=== PATIENT | male | born 1955 | race Caucasian/White ===

== ENCOUNTER 2020-04-15 10:03 | Inpatient (IN) | payer OTHER ==
[~2020-04-15] VITALS: Ht 182.9 cm; Wt 79.0 kg
--- NOTE | 2020-04-15 10:10 | NUR ---
Placed pt in ED bed and spoke with SHANEKA Adamson about pt symptoms/condition and asked him to eval pt. No neuro deficits noted at this time. SHANEKA Adamson signed up for pt.
[2020-04-15 10:53] LABS: BASOPHILS # (AUTO) 0.1 X10'3 (0-0.2); BASOPHILS % (AUTO) 0.9 % (0-1); EOSINOPHILS # (AUTO) 0.3 X10'3 (0-0.9); EOSINOPHILS % (AUTO) 3.2 % (0-6); HEMATOCRIT 42.6 % (42.0-52.0); HEMOGLOBIN 13.8 g/dl (14.0-17.9); LYMPHOCYTES # (AUTO) 2.2 X10'3 (1.1-4.8); LYMPHOCYTES % (AUTO) 21.7 % (21-51); MEAN CORPUSCULAR HEMOGLOBIN 26.4 PG (27.0-31.0); MEAN CORPUSCULAR HGB CONC 32.5 g/dL (33.0-36.5); MEAN CORPUSCULAR VOLUME 81.1 FL (78-98); MONOCYTES # (AUTO) 0.9 X10'3 (0-0.9); MONOCYTES % (AUTO) 8.6 % (2-12); NEUTROPHILS # (AUTO) 6.7 X10'3 (1.8-7.7); NEUTROPHILS % (AUTO) 65.6 % (42-75); PLATELET COUNT 193 X10'3 (140-440); RED BLOOD COUNT 5.25 X10'6 (4.70-6.10); RED CELL DISTRIBUTION WIDTH 13.5 % (11.5-14.5); WHITE BLOOD COUNT 10.2 X10'3 (4.5-11.0)
--- NOTE | 2020-04-15 10:58 | NUR ---
Arrived for Level 1 stroke alert.
--- NOTE | 2020-04-15 11:05 | NUR ---
stroke nurse present, CT done 1030, tele-Neuro in room
--- NOTE | 2020-04-15 11:05 | NUR ---
Have set up Telemedicine for neuro evaluation, patient seems to have resolved except for some light headedness.
[2020-04-15 11:08] LABS: PARTIAL THROMBOPLASTIN TIME 37 SECONDS (22-32)
[2020-04-15 11:10] LABS: ALANINE AMINOTRANSFERASE 29 U/L (12-78); ALBUMIN 3.8 G/DL (3.4-5.0); ALKALINE PHOSPHATASE 108 IU/L (46-116); ANION GAP 7 (8-16); ASPARTATE AMINO TRANSFERASE 14 U/L (10-37); BILIRUBIN,TOTAL 0.2 MG/DL (0.1-1.0); BLOOD UREA NITROGEN 11 MG/DL (7-18); BUN/CREATININE RATIO 10.5 (5.4-32.0); CALCIUM 8.7 MG/DL (8.5-10.1); CHLORIDE 101 MMOL/L (99-107); CREATININE 1.05 MG/DL (0.60-1.10); GLUCOSE 259 MG/DL (70-104); POTASSIUM 4.1 MMOL/L (3.5-5.1); SODIUM 135 MMOL/L (135-145); TOTAL CARBON DIOXIDE 26.8 MMOL/L (24-32); TOTAL PROTEIN 7.7 G/DL (6.4-8.2); eGFR 72 ML/MIN
--- NOTE | 2020-04-15 11:25 | NUR ---
I did get patient out of bed and his sbp did drop some from the 140's to 120's with standing. He was able to walk and was not unsteady but did again say he had minimal light headedness.
[2020-04-15] MEDS ORDERED: aspirin 325mg tablet PO ONE (11:35)
[2020-04-15] MEDS ORDERED: normal saline 1000ml 1,000 ML IV ONE (11:40)
[2020-04-15] MEDS ORDERED: LISI-604 PO (11:59)
[2020-04-15] MEDS ORDERED: SIMV10TA2 PO (11:59)
[2020-04-15] MEDS ORDERED: METF500T PO (11:59)
[2020-04-15 12:07] LABS: CLARITY,URINE CLEAR (Clear); COLOR,URINE YELLOW (Yellow); GLUCOSE, URINE 500 mg/dl (Neg); KETONES,URINE TRACE mg/dl (Neg); LEUKOCYTE ESTERASE ,URINE NEGATIVE (Neg); NITRITES, URINE NEGATIVE (Neg); OCCULT BLOOD,URINE NEGATIVE (Neg); PROTEIN,URINE NEGATIVE (Neg); UROBILINOGEN,URINE 0.2 E.U/dL (0.2-1.0)
[2020-04-15 12:09] LABS: UA COLLECTION TYPE CLN CATCH MIDSTREAM
[2020-04-15] MEDS ORDERED: normal saline 1000ml 1,000 ML IV SCH ×2 (12:34→18:40)
[2020-04-15] MEDS ORDERED: glucagon, human recombinant 1mg kit SUBCUT PRN (12:35)
[2020-04-15] MEDS ORDERED: magnesium Cl slow-release 64mg tablet PO PRN (12:35)
[2020-04-15] MEDS ORDERED: MESSAGE TO PHARMACY PO ONE (12:35)
[2020-04-15] MEDS ORDERED: diphenhydrAMINE 25mg capsule PO PRN (12:35)
[2020-04-15] MEDS ORDERED: insulin Lispro (HumaLOG) vial - multi-dose SQ SCH (12:35)
[2020-04-15] MEDS ORDERED: mag hydrox/Alum hydrox/simeth 30ml oral suspension PO PRN (12:35)
[2020-04-15] MEDS ORDERED: bisacodyl 10mg suppository rectal RC PRN (12:35)
[2020-04-15] MEDS ORDERED: dextrose 50%-water 50ml dispensing syringe IV PRN ×2 (12:35)
[2020-04-15] MEDS ORDERED: potassium Cl 20 mEq SR tablet PO PRN ×2 (12:35)
[2020-04-15] MEDS ORDERED: HYDROcodone/acetaminophen 5mg/325mg tablet PO PRN (12:35)
[2020-04-15] MEDS ORDERED: HYDROcodone/acetaminophen 10/325mg tab PO PRN (12:35)
[2020-04-15] MEDS ORDERED: magnesium hydroxide 30ml (MOM) UD suspension PO PRN (12:35)
[2020-04-15] MEDS ORDERED: potassium CL 10mEq/100ml bag 100 ML IV PRN ×2 (12:35)
[2020-04-15] MEDS ORDERED: magnesium 2GM in 50ml NS 50 ML IV PRN (12:35)
[2020-04-15] MEDS ORDERED: dextrose ORAL solution 15 GM/59 ML bottle PO PRN ×2 (12:35)
[2020-04-15] MEDS ORDERED: magnesium 4gm in 100ml NS 100 ML IV PRN (12:35)
[2020-04-15] MEDS ORDERED: morphine 2 MG/ML inj. syringe IV PRN ×2 (12:35)
[2020-04-15] MEDS ORDERED: acetaminophen 650mg rectal suppository RC PRN (12:35)
[2020-04-15] MEDS ORDERED: ondansetron/PF 4mg/2ml inj IV PRN (12:35)
[2020-04-15] MEDS ORDERED: acetaminophen 325mg tablet PO PRN ×2 (12:35)
[2020-04-15] MEDS ORDERED: iohexol 350MG/ML 100ml bottle IV ONE (12:46)
[2020-04-15] MEDS: MESSAGE TO NURSING PO SCH (13:00)
[2020-04-15 13:20] LABS: CHOL/HDL RATIO 4.2 (0.00-4.99); CHOLESTEROL 150 MG/DL (0-200); HDL CHOLESTEROL 36 MG/DL (35-60); LDL CHOLESTEROL 92 MG/DL (50-100); TRIGLYCERIDES 109 MG/DL (20-135)
[2020-04-15 13:25] LABS: HEMOGLOBIN A1C 8.5 % (4.5-6.2)
--- NOTE | 2020-04-15 15:00 | NUR ---
RECEIVED REPORT FROM [facility]ULTANTMIRIAM HERNANDEZ RECEIVED PT INTO ROOM 4022D ORIENTED TO SURROUNDINGS,,ASSESSMENT COMPLETE,NO NEURO DEFICITS.PT C/O SLIGHT LIGHT HEADEDNESS WITH AMB,WHICH PASSES AFTER STANDING FOR A MOMENT,AMB IN ROOM,PT DOWN TO MRI VIA W/C
[2020-04-15 15:30] VITALS: BP 133/75
[2020-04-15 15:47] VITALS: BP 133/74
[2020-04-15] MEDS ORDERED: nicotine 21mg patch - 24 hr TD ONE (17:55)
[2020-04-15] MEDS ORDERED: ipratropium/albuterol 3ml nebule NEB PRN (18:30)
--- NOTE | 2020-04-15 18:46 | NUR ---
Problems reprioritized. Patient report given, questions answered & plan of care reviewed with shana Andres.
[2020-04-15] MEDS: ipratropium/albuterol 3ml nebule NEB SCH ×2 (19:00→22:56)
[2020-04-15] MEDS: K and/or MAG REPLACEMENT MC SCH (20:00)
[2020-04-15] MEDS: heparin, porcine 5000 units/ml vial SQ SCH (20:07)
[2020-04-15] MEDS ORDERED: insulin glargine (Lantus) pen - multi-dose SQ SCH (21:00)
[2020-04-15] MEDS ORDERED: atorvastatin 10mg tablet PO SCH (21:00)
[2020-04-15 22:00] VITALS: BP 144/79
[2020-04-16 02:00] VITALS: BP 95/52
[2020-04-16] MEDS: ipratropium/albuterol 3ml nebule NEB SCH ×3 (04:21→11:40)
[2020-04-16 04:30] VITALS: BP_SYST 110; BP_SYST 112; BP_SYST 113; BP_DIAS 65; BP_DIAS 67; BP_DIAS 74
[2020-04-16 06:00] VITALS: BP 111/64
[2020-04-16 06:00] LABS: BASOPHILS # (AUTO) 0.1 X10'3 (0-0.2); BASOPHILS % (AUTO) 0.8 % (0-1); EOSINOPHILS # (AUTO) 0.3 X10'3 (0-0.9); EOSINOPHILS % (AUTO) 3.5 % (0-6); HEMATOCRIT 40.2 % (42.0-52.0); HEMOGLOBIN 13.1 g/dl (14.0-17.9); LYMPHOCYTES # (AUTO) 2.7 X10'3 (1.1-4.8); LYMPHOCYTES % (AUTO) 29.1 % (21-51); MEAN CORPUSCULAR HEMOGLOBIN 26.7 PG (27.0-31.0); MEAN CORPUSCULAR HGB CONC 32.6 g/dL (33.0-36.5); MEAN CORPUSCULAR VOLUME 81.8 FL (78-98); MEAN PLATELET VOLUME 9.6 FL (7.4-10.4); MONOCYTES # (AUTO) 0.8 X10'3 (0-0.9); MONOCYTES % (AUTO) 8.9 % (2-12); NEUTROPHILS # (AUTO) 5.4 X10'3 (1.8-7.7); NEUTROPHILS % (AUTO) 57.7 % (42-75); PLATELET COUNT 173 X10'3 (140-440); RED BLOOD COUNT 4.91 X10'6 (4.70-6.10); RED CELL DISTRIBUTION WIDTH 13.5 % (11.5-14.5); WHITE BLOOD COUNT 9.3 X10'3 (4.5-11.0)
[2020-04-16 06:20] LABS: ALANINE AMINOTRANSFERASE 28 U/L (12-78); ALBUMIN 3.3 G/DL (3.4-5.0); ALKALINE PHOSPHATASE 83 IU/L (46-116); ANION GAP 8 (8-16); ASPARTATE AMINO TRANSFERASE 16 U/L (10-37); BILIRUBIN,TOTAL 0.2 MG/DL (0.1-1.0); BLOOD UREA NITROGEN 10 MG/DL (7-18); BUN/CREATININE RATIO 11.9 (5.4-32.0); CALCIUM 8.5 MG/DL (8.5-10.1); CHLORIDE 106 MMOL/L (99-107); CHOL/HDL RATIO 4.2 (0.00-4.99); CHOLESTEROL 140 MG/DL (0-200); CREATININE 0.84 MG/DL (0.60-1.10); GLUCOSE 179 MG/DL (70-104); HDL CHOLESTEROL 33 MG/DL (35-60); LDL CHOLESTEROL 87 MG/DL (50-100); MAGNESIUM 1.7 MG/DL (1.5-2.4); PHOSPHORUS 3.3 MG/DL (2.3-4.5); POTASSIUM 3.7 MMOL/L (3.5-5.1); SODIUM 141 MMOL/L (135-145); TOTAL CARBON DIOXIDE 26.8 MMOL/L (24-32); TOTAL PROTEIN 6.7 G/DL (6.4-8.2); TRIGLYCERIDES 144 MG/DL (20-135); eGFR > 90 ML/MIN
--- NOTE | 2020-04-16 06:30 | NUR ---
received report from shana sutton
--- NOTE | 2020-04-16 06:49 | NUR ---
Problems reprioritized. Patient report given, questions answered & plan of care reviewed with Nanette PINEDA.
[2020-04-16] MEDS: K and/or MAG REPLACEMENT MC SCH (07:35)
[2020-04-16] MEDS: heparin, porcine 5000 units/ml vial SQ SCH (07:49)
[2020-04-16] MEDS ORDERED: aspirin 81mg tablet.DR PO SCH (08:00)
[2020-04-16] MEDS ORDERED: nicotine 21mg patch - 24 hr TD SCH (08:00)
[2020-04-16] MEDS ORDERED: lisinopril 5mg tablet PO SCH (08:00)
[2020-04-16 10:00] VITALS: BP 115/70
--- NOTE | 2020-04-16 12:44 | NUR ---
pt takes metformin which is on hold at this time and lantus to help control his bg levels, continue to monitor
[2020-04-16] MEDS: MESSAGE TO NURSING PO SCH (13:00)
[2020-04-16] MEDS ORDERED: ASPI-1071 PO (13:13)
--- NOTE | 2020-04-16 13:43 | NUR ---
pt d/c with instructions, understanding of instructions and w/all belongings to private vehicle in wheelchair accompanied by nursing to f/u w/pcp
== END 2020-04-16 13:40 | disposition home or self-care (01) | DRG 69 ==
LOC: ER 10:04 → ED HOLD 12:34 → ORTHO 4S 15:00
PROVIDERS: ADMIT Family Medicine; ATTEND Family Medicine
DX: G45.9 Transient cerebral ischemic attack, unspecified (principal); R55 Syncope and collapse; E11.65 Type 2 diabetes mellitus with hyperglycemia; E78.5 Hyperlipidemia, unspecified; F17.200 Nicotine dependence, unspecified, uncomplicated; I10 Essential (primary) hypertension; J44.9 Chronic obstructive pulmonary disease, unspecified; Z79.899 Other long term (current) drug therapy; Z86.73 Personal history of transient ischemic attack (TIA), and cerebral infarction without residual deficits
CPT/HCPCS: 36415; 70450; 70496; 70498; 70551; 71045; 80053; 80061; 81003; 82948; 83036; 83735; 84100; 84443; 85025; 85610; 85651; 85730; 86885; 86900; 86901; 87081; 92508; 92616; 93005; 93306; 93880; 94640; 94760; 96360; 97161; 97530; 99285; G0378; J1644; J1815; J7030; Q9967

== ENCOUNTER 2023-09-21 06:05 | Day surgery (SDC) | payer OTHER, MEDICARE ==
[2023-09-14 16:13] LABS: BILIRUBIN,URINE NEGATIVE (Neg); CLARITY,URINE CLEAR (Clear); COLOR,URINE YELLOW (Yellow); GLUCOSE, URINE NEGATIVE (Neg); KETONES,URINE NEGATIVE (Neg); LEUKOCYTE ESTERASE ,URINE NEGATIVE (Neg); NITRITES, URINE NEGATIVE (Neg); OCCULT BLOOD,URINE NEGATIVE (Neg); PH,URINE 6.5 (4.8-8.0); PROTEIN,URINE NEGATIVE (Neg); UROBILINOGEN,URINE 0.2 E.U/dL (0.2-1.0)
[2023-09-14 16:18] LABS: BASOPHILS # (AUTO) 0.1 X10'3 (0-0.2); EOSINOPHILS # (AUTO) 0.4 X10'3 (0-0.9); EOSINOPHILS % (AUTO) 5.2 % (0-6); LYMPHOCYTES # (AUTO) 2.1 X10'3 (1.1-4.8); LYMPHOCYTES % (AUTO) 26.8 % (21-51); MEAN CORPUSCULAR HGB CONC 32.2 g/dL (33.0-36.5); MEAN CORPUSCULAR VOLUME 80.6 FL (78-98); MEAN PLATELET VOLUME 8.8 FL (7.4-10.4); MONOCYTES # (AUTO) 1.3 X10'3 (0-0.9); MONOCYTES % (AUTO) 16.9 % (2-12); NEUTROPHILS % (AUTO) 50.1 % (42-75); PRE OP HEMATOCRIT 41.3 % (42.0-52.0); PRE OP HEMOGLOBIN 13.3 g/dL (14.0-17.9); PRE OP PLATELET COUNT 170 X10'3 (140-440); RED BLOOD COUNT 5.12 X10'6 (4.70-6.10); RED CELL DISTRIBUTION WIDTH 13.9 % (11.5-14.5)
[2023-09-14 16:29] LABS: ALBUMIN/GLOBULIN RATIO 0.9 (1.1-1.5); ALKALINE PHOSPHATASE 107 IU/L (46-116); BLOOD UREA NITROGEN 16 MG/DL (7-18); BUN/CREATININE RATIO 15.4 (10.0-20.0); CALCIUM 9.7 MG/DL (8.5-10.1); CHLORIDE 103 MMOL/L (99-107); CREATININE 1.04 MG/DL (0.60-1.10); PRE OP ALT 28 U/L (30-65); PRE OP ANION GAP 9 (8-16); PRE OP AST 20 U/L (10-37); PRE OP BILIRUB, TOTAL 0.2 MG/DL (0.0-1.0); PRE OP GLUCOSE 75 MG/DL (70-104); PRE OP POTASSIUM 4.3 MMOL/L (3.4-5.1); PRE OP SODIUM 141 MMOL/L (135-145); TOTAL CARBON DIOXIDE 29.4 MMOL/L (24-32); TOTAL PROTEIN 8.6 G/DL (6.4-8.2); UA COLLECTION TYPE NON-SPECIFIED; eGFR 71 ML/MIN
[2023-09-14 16:51] LABS: PLATELET ESTIMATE NORMAL; TOTAL CELLS COUNTED 100
[~2023-09-21] VITALS: Ht 182.9 cm; Wt 79.4 kg
[2023-09-21] VITALS (28 sets, daily range): BP systolic 119–162; BP diastolic 56–101; PULSE 73–104; RESP 10–25; TEMP 98; O2SAT 89–99
[~2023-09-21 06:05] MED LIST: AMA1T PO; LISI5TAB22 PO; METF-438 PO; SIMV10TA98 PO; cefazolin 2gm/D5W 100mL 100 ML IV ONE; famotidine 20mg tablet PO ONE; ringers solution, lacted 1,000 ML IV SCH
[2023-09-21] MEDS ORDERED: BUPIVAcaine/PF 2.5mg/ml (0.25%) 10ml vial ONE (07:45)
[2023-09-21] MEDS ORDERED: labetalol 20mg/4ml (5mg/ml) syringe IV PRN (08:25)
[2023-09-21] MEDS ORDERED: hydrALAZINE 20mg/ml inj. IV PRN (08:25)
[2023-09-21] MEDS ORDERED: morphine 4 MG/ML inj SYRINge IV PRN (08:25)
[2023-09-21] MEDS ORDERED: fentaNYL/PF 50MCG/1 ML 2ML syringe IV PRN ×2 (08:25)
[2023-09-21] MEDS ORDERED: morphine 2 MG/ML inj. syringe IV PRN (08:25)
[2023-09-21] MEDS ORDERED: ringers solution, lacted 1,000 ML IV SCH (08:25)
[2023-09-21] MEDS ORDERED: ondansetron/PF 4mg/2ml inj IV PRN (08:25)
[2023-09-21] MEDS ORDERED: fentaNYL/PF 50MCG/1 ML 2ML syringe ONE (08:36)
[2023-09-21] MEDS ORDERED: midazolam 1 mg/ML 2ml injection ONE (08:36)
[2023-09-21] MEDS ORDERED: rocuronium 10mg/ml inj IV ONE (08:37)
[2023-09-21] MEDS ORDERED: propofol inj 20 ML IV ONE (08:37)
[2023-09-21] MEDS ORDERED: dexamethasone sod phosphate 4mg/ml inj. ONE (08:37)
[2023-09-21] MEDS ORDERED: ondansetron/PF 4mg/2ml inj ONE (08:37)
[2023-09-21] MEDS ORDERED: LIDOcaine 2% (20mg/ml) 5ml vial ONE (08:37)
[2023-09-21] MEDS ORDERED: neostigmine methylsulfate 1 MG/ML 10ml vial ONE (08:37)
[2023-09-21] MEDS ORDERED: PHENYLephrine 10mg/ml 5ml injection IV ONE (09:01)
[2023-09-21] MEDS ORDERED: glycopyrrolate 0.2mg/ml inj ONE (09:01)
[2023-09-21] MEDS ORDERED: sevoflurane 250ml liquid IH ONE (09:01)
[2023-09-21] MEDS ORDERED: metoprolol tartrate 1mg/ml inj IV ONE (09:29)
[2023-09-21] MEDS ORDERED: acetaminophen 1,000mg/100ml IV 100 ML IV ONE (09:35)
[2023-09-21] MEDS ORDERED: labetalol 20mg/4ml (5mg/ml) syringe IV ONE (10:01)
[2023-09-21] MEDS ORDERED: BUPIVAcaine/PF 2.5mg/ml (0.25%) 10ml vial IJ ONE (10:18)
== END 2023-09-21 16:01 | disposition home or self-care (01) ==
LOC: PAS 06:05
PROVIDERS: ATTEND Surgery
DX: K40.90 Unilateral inguinal hernia, without obstruction or gangrene, not specified as recurrent (principal); J43.9 Emphysema, unspecified; I10 Essential (primary) hypertension; E11.9 Type 2 diabetes mellitus without complications; Z86.73 Personal history of transient ischemic attack (TIA), and cerebral infarction without residual deficits; Z79.899 Other long term (current) drug therapy; Z79.84 Long term (current) use of oral hypoglycemic drugs; Z98.890 Other specified postprocedural states; Z87.891 Personal history of nicotine dependence; Z72.89 Other problems related to lifestyle; Z81.8 Family history of other mental and behavioral disorders
CPT/HCPCS: 36415; 80053; 81003; 82948; 85007; 85025; A4215; A4615; A4618; C1758; C1781; J0131; J0690; J1100; J2250; J2270; J2370; J2405; J2704; J2710; J3010; J3490; J7120